=== PATIENT | male | born 1975 | race Caucasian/White ===

== ENCOUNTER 2021-10-11 15:46 | Emergency (ER) | payer OTHER ==
[2021-10-11 16:50] VITALS: BP 105/79; PULSE 96; TEMP 97.8; BMI 30.7
[2021-10-11] MEDS ORDERED: ONDANSETRON 4 MG/2 ML VIAL IVPUSH ONE (17:30)
[2021-10-11] MEDS ORDERED: ACETAMINOPHEN 1000 MG/100 ML VIAL IVPB ONE (17:31)
[2021-10-11] MEDS ORDERED: ONDANSETRON 4 MG/2 ML VIAL ONE (17:39)
[2021-10-11] MEDS ORDERED: ACETAMINOPHEN INJECTION 100 ML IVPB ONE (17:39)
[2021-10-11] MEDS ORDERED: LACTATED RINGERS SOLUTION 1000 ML INFUS.BAG IV ONE ×2 (17:45→19:23)
[2021-10-11] MEDS ORDERED: FAMOTIDINE 20 MG/50 ML IVPB 20 MG/50 ML MG IVPB ONE ×2 (17:48→18:04)
[2021-10-11 18:45] LABS: BASO % 0.3 % (0-2.0); EOS % 1.2 % (0-4.5); HEMATOCRIT 50.1 % (35.4-49); HEMOGLOBIN 17.7 GM/dL (11.7-16.9); LYMPH % 18.3 % (8-40); MCH 30.7 pg (25.7-33.7); MCHC 35.4 g/dl (32.0-35.9); MEAN CELL VOLUME 86.6 fl (80-96); MEAN PLT VOLUME 8.3 fl (7.5-11.1); NEUT % 63.2 % (42.8-82.8); PLATELET COUNT 338 10^3/uL (134-434); RBC 5.79 M/mm3 (4.00-5.60); RDW 13.9 % (11.9-15.9); WHITE BLOOD COUNT 10.6 K/mm3 (4.0-10.0)
[2021-10-11 18:54] LABS: CALCIUM 9.2 mg/dL (8.5-10.1)
[2021-10-11 18:55] LABS: ALBUMIN 4.1 g/dl (3.4-5.0); BLOOD UREA NITROGEN 34.5 mg/dL (7-18)
[2021-10-11 18:58] LABS: CREATININE 1.5 mg/dL (0.55-1.3)
[2021-10-11 18:59] LABS: BILIRUBIN,TOTAL 0.4 mg/dL (0.2-1); TOT PROT 8.5 g/dl (6.4-8.2)
[2021-10-11 21:43] LABS: CALCIUM 8.4 mg/dL (8.5-10.1)
[2021-10-11 21:44] LABS: BLOOD UREA NITROGEN 29.4 mg/dL (7-18)
[2021-10-11 21:47] LABS: CREATININE 1.1 mg/dL (0.55-1.3)
== END 2021-10-11 22:14 | disposition home or self-care (01) ==
LOC: JER 15:46
PROC: 3E033GC Introduction of Other Therapeutic Substance into Peripheral Vein, Percutaneous Approach (ICD-10-PCS; principal; 2021-10-11)
DX: R11.2 Nausea with vomiting, unspecified (principal); R19.7 Diarrhea, unspecified
CPT/HCPCS: 36415; 76705-TC; 80048; 80053; 83690; 85025; 87804; 99284-25; C9803; J0131; U0003; U0005